=== PATIENT | male | born 1980 | race African-American/Black ===

== ENCOUNTER 2022-05-11 18:16 | Emergency (ER) | payer SELFPAY ==
[~2022-05-11] VITALS: Ht 172.7 cm; Wt 68.0 kg
[2022-05-11 21:19] VITALS: BP 120/86
== END 2022-05-11 22:44 ==
LOC: ER 18:16 → EDBD 18:16 → ER 22:44
DX: R45.6 Violent behavior (principal); S00.81XA Abrasion of other part of head, initial encounter; X58.XXXA Exposure to other specified factors, initial encounter; R00.0 Tachycardia, unspecified; Y93.89 Activity, other specified; Y92.488 Other paved roadways as the place of occurrence of the external cause
CPT/HCPCS: 99283